=== PATIENT | female | born 1990 | race Caucasian/White ===

== ENCOUNTER 2018-09-26 18:56 | Emergency (ER) | payer OTHER ==
--- NOTE | 2018-09-26 19:17 | PDOC ---
Rapid Medical Evaluation Time Seen by Provider: 09/26/18 19:16 Medical Evaluation: 09/26/18 19:16 HPI: withdrawing from ETOH, vomiting PE: No gross deficits ORDERS: belly labs, banana bag U preg Discharge Disposition - Diagnosis Alcohol withdrawal - Referrals - Patient Instructions - Post Discharge Activity
[2018-09-26 19:30] VITALS: BMI 29.2
[2018-09-26] MEDS ORDERED: SODIUM CHLORIDE 1,000 ML IV STA (23:33)
[2018-09-26 23:37] VITALS: BP 141/95; PULSE 110; TEMP 98.5
[2018-09-26] MEDS ORDERED: FAMOTIDINE 20 MG/50 ML IVPB 20 MG/50 ML MG IVPB ONE (23:59)
[2018-09-27] MEDS ORDERED: chlordiazePOXIDE HCL 25 MG CAPSULE PO ONE
[2018-09-27 00:03] LABS: BASO % 0.3 % (0-2.0); EOS % 0.1 % (0-4.5); HEMATOCRIT 39.6 % (32.4-45.2); HEMOGLOBIN 13.2 GM/dL (10.7-15.3); LYMPH % 13.2 % (8-40); MCH 28.5 pg (25.7-33.7); MCHC 33.4 g/dl (32.0-36.0); MEAN CELL VOLUME 85.2 fl (80-96); MEAN PLT VOLUME 8.9 fl (7.5-11.1); MONO % 10.8 % (3.8-10.2); NEUT % 75.6 % (42.8-82.8); PLATELET COUNT 271 K/MM3 (134-434); RBC 4.64 M/mm3 (3.60-5.2); WHITE BLOOD COUNT 9.9 K/mm3 (4.0-10.0)
[2018-09-27] MEDS ORDERED: FAMOTIDINE 20 MG/50 ML IVPB 20 MG/50 ML MG IVPB ONE (00:04)
[2018-09-27] MEDS ORDERED: chlordiazePOXIDE HCL 25 MG CAPSULE ONE (00:04)
[2018-09-27] MEDS ORDERED: ONDANSETRON 4 MG/2 ML VIAL IVPUSH ONE (00:12)
[2018-09-27] MEDS ORDERED: ONDANSETRON 4 MG/2 ML VIAL ONE (00:13)
--- NOTE | 2018-09-27 00:32 | PDOC ---
Documentation entered by Jigar Phillips SCRIBE, acting as scribe for Chasity Rahman MD. Chasity Rahman MD: This documentation has been prepared by the Alan walters Joel, SCRIBE, under my direction and personally reviewed by me in its entirety. I confirm that the documentation accurately reflects all work, treatment, procedures, and medical decision making performed by me. History of Present Illness - General Chief Complaint: Alcohol intoxication Stated Complaint: PAIN Time Seen by Provider: 09/26/18 19:16 History Source: Patient Exam Limitations: No Limitations - History of Present Illness Initial Comments: The patient is a 28 year old female with a significant PMH of alcohol abuse who presents to the emergency department for evaluation of vomiting and epigastric discomfort beginning earlier today. The patient also notes associated palpitations with her symptoms. She states her last drink was about 12 hours ago. The patient denies chest pain, shortness of breath, headache and dizziness. Denies fever, chills, diarrhea and constipation. Denies dysuria, frequency, urgency and hematuria. Allergies: NKA Past surgical history: Gastric sleeve (2014). Social history: Alcohol abuse. Marijuana use. Past History - Past Medical History Allergies/Adverse Reactions: Allergies Allergy/AdvReac Type Severity Reaction Status Date / Time No Known Allergies Allergy Verified 09/26/18 19:20 Home Medications: Ambulatory Orders Pantoprazole Sodium [Protonix -] 20 mg PO DAILY #30 tablet.ec 09/27/18 CVA: No COPD: No Psychiatric Problems: Yes (alcoholism) - Surgical History Gastric Stapling: Yes (Gastric bypass) - Suicide/Smoking/Psychosocial Hx Smoking History: Never smoked Hx Alcohol Use: Yes Drug/Substance Use Hx: Yes ([place]) Review of Systems - Review of Systems Able to Perform ROS?: Yes Comments:: 09/27/18 00:01 GENERAL/CONSTITUTIONAL: No fever or chills. No weakness. HEAD, EYES, EARS, NOSE AND THROAT: No change in vision. No ear pain or discharge. No sore throat. CARDIOVASCULAR: (+) Palpitations. No chest pain or shortness of breath. RESPIRATORY: No cough, wheezing, or hemoptysis. GASTROINTESTINAL: (+) Vomiting. (+) Epigastric discomfort. No diarrhea or constipation. GENITOURINARY: No dysuria, frequency, or change in urination. MUSCULOSKELETAL: No joint or muscle swelling or pain. No neck or back pain. SKIN: No rash NEUROLOGIC: No headache, vertigo, loss of consciousness, or change in strength/ sensation. ENDOCRINE: No increased thirst. No abnormal weight change. HEMATOLOGIC/LYMPHATIC: No anemia, easy bleeding, or history of blood clots. ALLERGIC/IMMUNOLOGIC: No hives or skin allergy. *Physical Exam - Vital Signs Last Vital Signs Temp Pulse Resp BP Pulse Ox 98.5 F 110 H 20 141/95 98 09/26/18 23:35 09/26/18 23:35 09/26/18 19:16 09/26/18 23:35 09/26/18 23:35 - Physical Exam Comments: 09/27/18 00:02 GENERAL: Awake, alert, and fully oriented, in no acute distress HEAD: No signs of trauma EYES: PERRLA, EOMI, sclera anicteric, conjunctiva clear ENT: Auricles normal inspection, hearing grossly normal, nares patent, oropharynx clear without exudates. Moist mucosa NECK: Normal ROM, supple, no lymphadenopathy, JVD, or masses LUNGS: Breath sounds equal, clear to auscultation bilaterally. No wheezes, and no crackles HEART: Regular rate and rhythm, normal S1 and S2, no murmurs, rubs or gallops ABDOMEN: Soft, nontender, normoactive bowel sounds. No guarding, no rebound. No masses EXTREMITIES: Normal range of motion, no edema. No clubbing or cyanosis. No cords, erythema, or tenderness NEUROLOGICAL: Cranial nerves II through XII grossly intact. Normal speech, normal gait SKIN: Warm, Dry, normal turgor, no rashes or lesions noted. ED Treatment Course - LABORATORY CBC & Chemistry Diagram: 09/26/18 23:45 09/26/18 23:45 - ADDITIONAL ORDERS Additional order review: 09/26/18 23:45 RBC 4.64 MCV 85.2 MCHC 33.4 RDW 16.0 H MPV 8.9 Neutrophils % 75.6 Lymphocytes % 13.2 Monocytes % 10.8 H Eosinophils % 0.1 Basophils % 0.3 - Medications Given in the ED: ED Medications Discontinued Medications Generic Name Dose Route Start Last Admin Trade Name Freq PRN Reason Stop Dose Admin Chlordiazepoxide HCl 25 mg 09/27/18 00:00 09/27/18 00:10 Librium - PO 09/27/18 00:01 25 mg ONCE ONE Administration Famotidine/Sodium Chloride 20 mg in 50 mls @ 100 mls/hr 09/26/18 23:59 00:10 Pepcid 20 Mg Premixed Ivpb - IVPB 09/27/18 00:28 100 mls/hr ONCE ONE Administration Ondansetron HCl 4 mg 09/27/18 00:12 09/27/18 00:20 Zofran Injection IVPUSH 09/27/18 00:13 4 mg ONCE ONE Administration Medical Decision Making - Medical Decision Making 09/27/18 00:30 28 yo female with history of binge drinking p/w palpitations,dehydration s/p vomiting . Her last drink of etoh was 12 hours ago -benign abdominal exam plan IVF,cbc,comp and re assess 09/27/18 01:22 she is now eating and drinking with no problem currently Her labs were reviewed and her CBC was unremarkable. Chemistries were reviewed and her AST ALTs are within normal limits,there are no electrolyte abnormalities Patient was discharged home 09/27/18 02:41 *DC/Admit/Observation/Transfer Diagnosis at time of Disposition: ETOH abuse Alcoholic gastritis Qualifiers: Chronicity: unspecified Gastritis bleeding: without bleeding Qualified Code(s) : K29.20 - Alcoholic gastritis without bleeding - Discharge Dispostion Disposition: HOME Condition at time of disposition: Improved - Prescriptions Prescriptions: Pantoprazole Sodium [Protonix -] 20 mg PO DAILY #30 tablet.ec - Referrals - Patient Instructions Printed Discharge Instructions: DI for Gastroesophageal Reflux Disease (GERD), DI for Alcohol Abuse Additional Instructions: please hand picker your medications at your pharmacy - Post Discharge Activity
[2018-09-27 00:38] LABS: ALBUMIN 3.9 g/dl (3.4-5.0); BILIRUBIN,TOTAL 1.2 mg/dL (0.2-1); BLOOD UREA NITROGEN 9.6 mg/dL (7-18); CALCIUM 9.1 mg/dL (8.5-10.1); CREATININE 0.7 mg/dL (0.55-1.3); TOT PROT 7.3 g/dl (6.4-8.2)
== END 2018-09-27 01:38 | disposition home or self-care (01) ==
LOC: JER 18:56
PROC: 3E0337Z Introduction of Electrolytic and Water Balance Substance into Peripheral Vein, Percutaneous Approach (ICD-10-PCS; principal; 2018-09-26)
DX: K29.20 Alcoholic gastritis without bleeding (principal); F10.10 Alcohol abuse, uncomplicated; Z98.84 Bariatric surgery status
CPT/HCPCS: 36415; 80053; 83690; 84703; 85025; 96361; 96365; 96375; 99282-25; J7030

== ENCOUNTER 2024-03-29 10:24 | Emergency (ER) | payer OTHER ==
[2024-03-29] MEDS: LIDOCAINE 4% PATCH TP ONE (11:05)
[2024-03-29] MEDS: ACETAMINOPHEN 500 MG TABLET (FP) PO ONE (11:10)
[2024-03-29] MEDS ORDERED: ACETAMINOPHEN 325 MG TABLET (FP) ONE (11:18)
[2024-03-29] MEDS ORDERED: LIDOCAINE 4% PATCH TP ONE (11:18)
[2024-03-29 11:32] VITALS: BMI 26.4
[2024-03-29 13:45] VITALS: RESP 20; TEMP 98.1
[2024-03-29 15:56] VITALS: BP 122/67; PULSE 86
[2024-03-29] MEDS ORDERED: LIDOCAINE PATCH REMOVAL MC ONE (22:00)
== END 2024-03-29 16:05 | disposition home or self-care (01) ==
LOC: JER 10:24
DX: O09.522 Supervision of elderly multigravida, second trimester (principal); O99.891 Other specified diseases and conditions complicating pregnancy; M54.6 Pain in thoracic spine; R07.9 Chest pain, unspecified; R51.9 Headache, unspecified; M25.511 Pain in right shoulder; Z3A.24 24 weeks gestation of pregnancy; V49.40XA Driver injured in collision with unspecified motor vehicles in traffic accident, initial encounter; Y92.410 Unspecified street and highway as the place of occurrence of the external cause
CPT/HCPCS: 93005; 93010; 99283-25